=== PATIENT | male | born 1990 | race Caucasian/White ===

== ENCOUNTER 2019-01-16 02:30 | Emergency (ER) | payer OTHER ==
[~2019-01-16] VITALS: Ht 177.8 cm; Wt 72.6 kg
[2019-01-16 02:37] VITALS: BP 152/99
[2019-01-16] MEDS ORDERED: TRAMADOL 50 MG50 MG PO (03:00)
[2019-01-16] MEDS ORDERED: PENICILLIN VK250 MG PO (03:00)
== END 2019-01-16 03:05 | disposition home or self-care (01) ==
LOC: M.ERS 02:30
DX: K08.89 Other specified disorders of teeth and supporting structures (principal)

== ENCOUNTER 2019-06-03 10:32 | Emergency (ER) | payer OTHER ==
[~2019-06-03] VITALS: Ht 177.8 cm; Wt 75.8 kg
[~2019-06-03 10:32] MED LIST: PENICILLIN VK250 MG PO; TRAMADOL 50 MG50 MG PO
[2019-06-03 11:31] LABS: ABSOLUTE BASOPHILS 0.1 thou/uL (0.0-0.2); ABSOLUTE EOSINOPHILS 0.8 thou/uL (0.0-0.7); ABSOLUTE LYMPHOCYTES 1.5 thou/uL (0.8-5.3); ABSOLUTE MONOCYTES 0.9 thou/uL (0.0-1.2); ABSOLUTE NEUTROPHILS 8.8 thou/uL (1.6-8.1); BASOPHILS 0.5 %; EOSINOPHILS 6.3 %; HEMATOCRIT 39.8 % (42.0-52.0); HEMOGLOBIN 13.6 gm/dL (14.0-18.0); LYMPHOCYTES 12.5 %; MCHC 34.1 g/dL (28.0-37.0); MCV 90.8 fL (80.0-100.0); MONOCYTES 7.2 %; NUCLEATED RBCS 0 /100WBC; PLATELET COUNT* 235 thou/uL (150-400); POLYS 73.5 %; RBC 4.39 mil/uL (4.50-6.00); RDW-CV 13.2 % (10.5-14.5)
[2019-06-03 11:35] LABS: CALCIUM 8.8 mg/dL (8.5-10.1); CREATININE 0.9 mg/dL (0.6-1.3); POTASSIUM 3.8 mmol/L (3.5-5.1)
[2019-06-03 11:40] LABS: ALBUMIN 3.5 g/dL (3.4-5.0); TOTAL BILIRUBIN 0.2 mg/dL (<0.1-1.0)
[2019-06-03 12:30] LABS: URINE BILIRUBIN NEGATIVE (Negative); URINE BLOOD NEGATIVE (Negative); URINE CLARITY CLEAR; URINE COLOR YELLOW; URINE GLUCOSE-RANDOM NEGATIVE (Negative); URINE KETONES NEGATIVE (Negative); URINE LEUKOCYTES-REFLEX NEGATIVE (Negative); URINE NITRITE-REFLEX NEGATIVE (Negative); URINE PROTEIN NEGATIVE (Negative); URINE SPECIFIC GRAVITY 1.015 (1.005-1.030); URINE UROBILINOGEN 0.2 E.U./dl (0.2-1.0)
[2019-06-03 12:38] LABS: AMP/METHAMP POSITIVE (Negative); BARBITURATES Negative (Negative); BENZODIAZEPINES Negative (Negative); COCAINE Negative (Negative); METHADONE Negative (Negative); OPIATES POSITIVE (Negative); PCP Negative (Negative); THC Negative (Negative)
[2019-06-03] MEDS ORDERED: BACTRIM DS TAB1 EACH PO (12:48)
[2019-06-03] MEDS ORDERED: KEFLEX500 M1 PO (12:48)
[2019-06-03 13:00] VITALS: BP 142/99
--- NOTE | 2019-06-03 16:27 | EKG ---
[place] [address] ELECTROCARDIOGRAM REPORT Name: KERRYWOODROW Tania Room: [facility]#: [id number] Admission: 06/03/19 Attend Phys: Discharge: 06/03/19 Date of : 88 Report #: [id number] THIS REPORT FOR: //name// [facility] ED Test Date: 2019-06-03 Test Time: 11:33:29 Pat Name: WOODROW PAYNE Department: Room: Gender: Feature Writer: EV : 1990 Requested By: Dustin Hernandez Order Number: [id number] MD: Colby Shi Measurements Intervals [place] Rate: 112 P: 52 [place]: 150 QRS: 48 QRSD: 95 T: 55 QT: 324 QTc: 443 Interpretive Statements Sinus tachycardia Delayed R-wave development of uncertain etiology No previous ECG available for comparison Electronically Signed On 06-03-2019 16:27:15 CDT by Colby Shi [email or web address] <ELECTRONICALLY SIGNED> By: Colby Shi MD, [facility] 06/03/19 1627 1133 1133 Colby Shi MD, FACC /EPI
== END 2019-06-03 13:02 | disposition home or self-care (01) ==
LOC: M.ERS 10:32
PROVIDERS: Physician Assistant
DX: K04.7 Periapical abscess without sinus (principal); L02.415 Cutaneous abscess of right lower limb; R00.0 Tachycardia, unspecified; F17.210 Nicotine dependence, cigarettes, uncomplicated; Z79.899 Other long term (current) drug therapy

== ENCOUNTER 2019-08-02 08:23 | Emergency (ER) | payer OTHER ==
[~2019-08-02] VITALS: Ht 177.8 cm; Wt 74.8 kg
[~2019-08-02 08:23] MED LIST changes: +BACTRIM DS TAB1 EACH PO; +KEFLEX500 M1 PO
[2019-08-02 08:49] LABS: ABSOLUTE BASOPHILS 0.1 thou/uL (0.0-0.2); ABSOLUTE EOSINOPHILS 0.4 thou/uL (0.0-0.7); ABSOLUTE LYMPHOCYTES 3.3 thou/uL (0.8-5.3); ABSOLUTE MONOCYTES 0.6 thou/uL (0.0-1.2); ABSOLUTE NEUTROPHILS 9.9 thou/uL (1.6-8.1); BASOPHILS 0.4 %; EOSINOPHILS 2.5 %; HEMATOCRIT 55.9 % (42.0-52.0); HEMOGLOBIN 19.3 gm/dL (14.0-18.0); LYMPHOCYTES 23.4 %; MCH 31.5 pg (26.0-34.0); MCHC 34.6 g/dL (28.0-37.0); MONOCYTES 4.2 %; MPV 8.8 fl. (7.2-11.1); NUCLEATED RBCS 0 /100WBC; PLATELET COUNT* 300 thou/uL (150-400); POLYS 69.5 %; RBC 6.14 mil/uL (4.50-6.00); RDW-CV 13.5 % (10.5-14.5); WBC 14.2 thou/uL (4.0-11.0)
[2019-08-02 09:01] LABS: APTT 23.7 Seconds (25.0-31.3); INR 1.1; PROTIME 11.5 Seconds (9.20-11.50)
[2019-08-02 09:10] LABS: CALCIUM 9.4 mg/dL (8.5-10.1); CREATININE 1.2 mg/dL (0.6-1.3); POTASSIUM 3.4 mmol/L (3.5-5.1)
[2019-08-02 09:13] LABS: ALBUMIN 4.1 g/dL (3.4-5.0); CK-MB MASS 10.1 ng/mL (<0.5-3.6); MAGNESIUM 1.8 mg/dL (1.8-2.4); TOTAL BILIRUBIN 1.1 mg/dL (<0.1-1.0); TOTAL PROTEIN 7.3 g/dL (6.4-8.2)
[2019-08-02 09:36] VITALS: BP 115/79
--- NOTE | 2019-08-02 19:56 | EKG ---
[place] [address] ELECTROCARDIOGRAM REPORT Name: KERRYWOODROW Tania Room: [facility]#: [id number] Admission: 08/02/19 Attend Phys: Discharge: 08/02/19 Date of : [birth year] Report #: [id number] THIS REPORT FOR: //name// [facility] ED Test Date: 2019-08-02 Test Time: 08:29:53 Pat Name: WOODROW PAYNE Department: Room: Gender: M Rn Night: CLIVE : 1990 Requested By: Dave Burger Order Number: [id number] MD: Santana George Measurements Intervals [place] Rate: 116 P: 69 MD: 154 QRS: 68 QRSD: 93 T: 61 QT: 327 QTc: 455 Interpretive Statements Sinus tachycardia Compared to ECG 06/03/2019 11:33:29 No significant changes Electronically Signed On 08-02-2019 19:56:06 RECORDS MANAGEMENT ANALYST by Santana George [email or web address] <ELECTRONICALLY SIGNED> By: Santana George MD, [facility] 08/02/19 1956 0829 0829 Santana George MD, [facility] /EPI
== END 2019-08-02 09:38 | disposition home or self-care (01) ==
LOC: M.ERS 08:23
PROVIDERS: Family Medicine
DX: R07.89 Other chest pain (principal); Z90.89 Acquired absence of other organs